=== PATIENT | male | born 1965 | race Caucasian/White ===

== ENCOUNTER 2020-12-25 01:20 | Emergency (ER) | payer OTHER ==
[~2020-12-25 01:20] MED LIST: 3IN1 COMMODE; METFORMIN HCL500 M2 PO; MOTRIN600 MG PO
[2020-12-25 02:07] LABS: BASOPHIL 0.7 % (0-2); EOSINOPHIL 3.9 % (0-5); HCT 43.1 % (42.0-52.0); HGB 15.1 g/dl (13.2-18.0); LYMPHOCYTE 23.8 % (15-48); MCH 33.6 pg (25.0-31.0); MCV 95.8 fL (78.0-100.0); MONOCYTE 8.3 % (0-12); MPV 11.4 fL (6.0-9.5); NRBC 0; PLT 122 K/uL (150-400); RDW 13.9 % (11.5-14.0); WBC 5.9 K/uL (4.0-10.5)
[2020-12-25 02:10] LABS: INR 1.56 (0.9-1.2); PROTHROMBIN TIME 17.7 SECONDS (11.4-13.6); PTT 37.3 SECONDS (22.2-34.7)
[2020-12-25 02:24] LABS: BILIRUBIN NEGATIVE (NEGATIVE); BLOOD NEGATIVE Ery/uL (NEGATIVE); CLARITY CLEAR (CLEAR); COLOR YELLOW (YELLOW); GLUCOSE (U) NORMAL (NORMAL); LEUKOCYTES NEGATIVE Leu/uL (NEGATIVE); NITRITE NEGATIVE (NEGATIVE); PROTEIN NEGATIVE (NEGATIVE); UROBILINOGEN 0.2 mg/dL (0.2-1.0); pH 6.5 (5.0-9.0)
[2020-12-25 02:32] LABS: ALBUMIN 3.1 g/dL (3.4-5.0); BILIRUBIN - TOTAL 1.2 mg/dL (0.2-1.0); BUN/CREAT RATIO (CALC) 24.2 RATIO; CREATININE 0.66 mg/dL (0.67-1.17); GLOBULIN (CALCULATION) 4.1 g/dL; IRON % SATURATION 19.9 %SAT (20-50); MAGNESIUM 1.9 mg/dL (1.8-2.4); POTASSIUM 3.3 mmol/L (3.5-5.1); TOTAL PROTEIN 7.2 g/dL (6.4-8.2)
[2020-12-25] MEDS ORDERED: ALDACTONE50 MG PO (06:27)
[2020-12-25 09:29] LABS: WBC (FLUID) 407 WBC/uL
[2020-12-25 09:38] LABS: COLOR (FLUID) YELLOW
[2020-12-25 09:39] LABS: CLARITY (FLUID) CLOUDY; RBC (FLUID) 590 RBC/uL
== END 2020-12-25 11:41 | disposition home or self-care (01) ==
LOC: FER 01:20
PROVIDERS: Emergency Medicine
DX: K74.60 Unspecified cirrhosis of liver (principal); E11.9 Type 2 diabetes mellitus without complications; I10 Essential (primary) hypertension; Z88.6 Allergy status to analgesic agent
CPT/HCPCS: 36415; 80053; 81003; 82150; 82728; 83036; 83540; 83550; 83605; 83615; 83690; 83735; 84145; 84157; 84443; 84484; 85025; 85610; 85730; 87070; 89051; 93005; 96365; 96366; 96375; 96376; J1170; J2060; J2405; P9046; P9047; Q9967

== ENCOUNTER 2022-01-16 18:04 | Emergency (ER) | payer OTHER ==
[~2022-01-16 18:04] MED LIST changes: +ALDACTONE50 MG PO
[2022-01-16] MEDS ORDERED: BACTRIM DS TAB1 EACH PO (19:31)
[2022-01-16] MEDS ORDERED: VIBRAMYCIN100 MG PO (19:31)
== END 2022-01-16 20:10 | disposition home or self-care (01) ==
LOC: FER 18:04
DX: L03.115 Cellulitis of right lower limb (principal); I10 Essential (primary) hypertension; Z88.6 Allergy status to analgesic agent; Z79.899 Other long term (current) drug therapy
CPT/HCPCS: 99282

== ENCOUNTER 2022-01-20 00:30 | Inpatient (IN) | payer OTHER ==
[~2022-01-20] VITALS: Ht 180.3 cm; Wt 104.0 kg
[~2022-01-20 00:30] MED LIST changes: +BACTRIM DS TAB1 EACH PO; +VIBRAMYCIN100 MG PO
[2022-01-20 01:28] LABS: BASOPHIL 0.7 % (0-2); EOSINOPHIL 1.9 % (0-5); HCT 45.7 % (42.0-52.0); HGB 16.3 g/dl (13.2-18.0); LYMPHOCYTE 18.2 % (15-48); MCHC 35.7 g/dL (32.0-36.0); MCV 95.2 fL (78.0-100.0); MONOCYTE 8.8 % (0-12); MPV 11.4 fL (6.0-9.5); NEUTROPHIL 69.9 % (41-80); NRBC 0; RDW 13.2 % (11.5-14.0); WBC 4.2 K/uL (4.0-10.5)
[2022-01-20 01:31] LABS: PLT 68 K/uL (150-400)
[2022-01-20 01:42] LABS: LACTIC ACID 2.7 mmol/L (0.4-1.9)
[2022-01-20 01:49] LABS: ALBUMIN 2.9 g/dL (3.4-5.0); BILIRUBIN - TOTAL 2.2 mg/dL (0.2-1.0); BUN/CREAT RATIO (CALC) 19.2 RATIO; C-REACTIVE PROTEIN 2.5 mg/dL (<=0.90); CREATININE 0.73 mg/dL (0.67-1.17); GLOBULIN (CALCULATION) 4.2 g/dL; POTASSIUM 4.6 mmol/L (3.5-5.1); TOTAL PROTEIN 7.1 g/dL (6.4-8.2)
[2022-01-20] MEDS ORDERED: PROAMATINE5 MG PO (05:29)
[2022-01-20] MEDS ORDERED: FUROSEMIDE 20MG20 MG PO (05:30)
[2022-01-20] MEDS ORDERED: OS-CAL500 MG PO (05:30)
[2022-01-20] MEDS ORDERED: ZINC50 MG PO (05:31)
[2022-01-20] MEDS ORDERED: VITAMIN D325 MC1 PO (05:32)
[2022-01-20] MEDS ORDERED: AMILORIDE HCL5 M1 PO (05:35)
[2022-01-20 13:16] LABS: BASOPHIL 0.4 % (0-2); EOSINOPHIL 1.8 % (0-5); HCT 41.2 % (42.0-52.0); HGB 14.8 g/dl (13.2-18.0); LYMPHOCYTE 14.8 % (15-48); MCH 33.7 pg (25.0-31.0); MCHC 35.9 g/dL (32.0-36.0); MCV 93.8 fL (78.0-100.0); MONOCYTE 8.4 % (0-12); MPV 11.2 fL (6.0-9.5); NEUTROPHIL 74.2 % (41-80); NRBC 0; RBC 4.39 M/uL (4.70-6.00); RDW 13.3 % (11.5-14.0); WBC 5.5 K/uL (4.0-10.5)
[2022-01-20 13:19] LABS: INR 1.58 (0.9-1.2); PROTHROMBIN TIME 18.1 SECONDS (11.8-13.4); PTT 43.5 SECONDS (24.4-34.7)
[2022-01-20 13:25] LABS: ALBUMIN 2.3 g/dL (3.4-5.0); BUN/CREAT RATIO (CALC) 22.4 RATIO; C-REACTIVE PROTEIN 2.8 mg/dL (<=0.90); CREATININE 0.67 mg/dL (0.67-1.17); GLOBULIN (CALCULATION) 3.8 g/dL; MAGNESIUM 1.5 mg/dL (1.8-2.4); PHOSPHORUS 2.5 mg/dL (2.6-4.7); POTASSIUM 3.8 mmol/L (3.5-5.1); TOTAL PROTEIN 6.1 g/dL (6.4-8.2)
[2022-01-20 13:28] LABS: BILIRUBIN - TOTAL 3.1 mg/dL (0.2-1.0)
[2022-01-20 13:45] LABS: PLT 62 K/uL (150-400)
--- NOTE | 2022-01-20 14:39 | NUR ---
DR. LOPEZ ORDERED MID-LINE. I WENT TO PATIENTS BEDSIDE, EXPALINED PROCEDURE, PATIENT VERBALLY CONSENTED. I USED ULTRASOUND TO VIEW THE PATIENTS LEFT UPPER CEPHALIC VEIN. I CLEANED AND PREPPED THE AREA, USING STERILE PROCEDURE, I INSERTED THE 21 GAUGE NEEDLE INTO THE PATIENTS LEFT UPPER ARM, BLOOD RETURN NOTED, I THEN ADVANCED THE GUIDEWIRE INTO THE NEEDLE AND RELEASED THE TOURNIQUET. I RETRACTED THE NEEDLE AND ADVANCED THE INTRODUCER AND MID-LINE OVER THE GUIDEWIRE, I WAS ABLE TO INSERT THE MID-LINE AND INTRODUCER OVER THE GUIDEWIRE W/O DIFFICULTY, AND THEN REMOVED THE GUIDEWIRE. I REMOVED THE INTERNAL INTRODUCER, LEAVING THE MID-LINE IN PLACE. BLOOD RETURN NOTED AND MID-LINE FLUSHED WITH 10ML NS W/O ANY DIFFICULTY. STERILE DRESSING PLACED OVER MID-LINE, REPORT GIVEN TO JERICA MYERS
[2022-01-21 06:09] LABS: BASOPHIL 0.5 % (0-2); EOSINOPHIL 3.2 % (0-5); HCT 40.6 % (42.0-52.0); HGB 14.5 g/dl (13.2-18.0); LYMPHOCYTE 25.6 % (15-48); MCHC 35.7 g/dL (32.0-36.0); MCV 95.3 fL (78.0-100.0); MONOCYTE 12.4 % (0-12); MPV 11.7 fL (6.0-9.5); NEUTROPHIL 58.1 % (41-80); NRBC 0; RBC 4.26 M/uL (4.70-6.00); RDW 13.5 % (11.5-14.0); WBC 4.1 K/uL (4.0-10.5)
[2022-01-21 06:12] LABS: PLT 65 K/uL (150-400)
[2022-01-21 06:29] LABS: BILIRUBIN - TOTAL 2.5 mg/dL (0.2-1.0); BUN/CREAT RATIO (CALC) 28.6 RATIO; C-REACTIVE PROTEIN 4.3 mg/dL (<=0.90); CREATININE 0.56 mg/dL (0.67-1.17); GLOBULIN (CALCULATION) 3.9 g/dL; MAGNESIUM 1.7 mg/dL (1.8-2.4); PHOSPHORUS 2.8 mg/dL (2.6-4.7); POTASSIUM 4.1 mmol/L (3.5-5.1); TOTAL PROTEIN 5.9 g/dL (6.4-8.2)
[2022-01-21] MEDS ORDERED: FLORANEX TABLE1 EACH PO (17:39)
[2022-01-21] MEDS ORDERED: METFORMIN HCL500 MG PO (17:39)
[2022-01-21] MEDS ORDERED: GLUCOTROL5 MG PO (17:39)
== END 2022-01-21 18:30 | disposition home or self-care (01) | DRG 872 ==
LOC: FER 00:30 → FMS 04:38
PROVIDERS: Emergency Medicine; Nurse Practitioner; ADMIT Internal Medicine
PROC: 3E03329 Introduction of Other Anti-infective into Peripheral Vein, Percutaneous Approach (ICD-10-PCS; principal; 2022-01-20)
PROC: 05HY33Z Insertion of Infusion Device into Upper Vein, Percutaneous Approach (ICD-10-PCS; 2022-01-20)
DX: A41.9 Sepsis, unspecified organism (principal); E87.2 Acidosis; L03.115 Cellulitis of right lower limb; R65.20 Severe sepsis without septic shock; Z20.822 Contact with and (suspected) exposure to COVID-19; F17.210 Nicotine dependence, cigarettes, uncomplicated; K75.81 Nonalcoholic steatohepatitis (NASH); D69.6 Thrombocytopenia, unspecified; E11.65 Type 2 diabetes mellitus with hyperglycemia; E78.5 Hyperlipidemia, unspecified; K21.9 Gastro-esophageal reflux disease without esophagitis; Z90.49 Acquired absence of other specified parts of digestive tract; Z79.899 Other long term (current) drug therapy
CPT/HCPCS: 36415; 75635; 80053; 80061; 83036; 83605; 83735; 83880; 84100; 84145; 85025; 85610; 85730; 86140; 87040; 93970; 94010; 94760; 94762; J0878; J1170; J1650; J1815; J1940; J2543; J3370; J3475; J7030; J7040; J7120; Q9967; U0002

== ENCOUNTER 2022-02-27 20:58 | Inpatient (IN) | payer OTHER ==
[~2022-02-27] VITALS: Ht 180.1 cm; Wt 97.1 kg
[~2022-02-27 20:58] MED LIST changes: +AMILORIDE HCL5 M1 PO; +FLORANEX TABLE1 EACH PO; +FUROSEMIDE 20MG20 MG PO; +GLUCOTROL5 MG PO; +METFORMIN HCL500 MG PO; +OS-CAL500 MG PO; +PROAMATINE5 MG PO; +VITAMIN D325 MC1 PO; +ZINC50 MG PO
[2022-02-27 23:19] LABS: BASOPHIL 0.6 % (0-2); EOSINOPHIL 2.6 % (0-5); HCT 50.3 % (42.0-52.0); HGB 17.8 g/dl (13.2-18.0); LYMPHOCYTE 19.2 % (15-48); MCH 33.8 pg (25.0-31.0); MCHC 35.4 g/dL (32.0-36.0); MCV 95.6 fL (78.0-100.0); MONOCYTE 7.7 % (0-12); MPV 11.1 fL (6.0-9.5); NEUTROPHIL 69.5 % (41-80); NRBC 0; RBC 5.26 M/uL (4.70-6.00); RDW 13.7 % (11.5-14.0); WBC 4.7 K/uL (4.0-10.5)
[2022-02-27 23:30] LABS: PLT 81 K/uL (150-400)
[2022-02-27 23:34] LABS: ALBUMIN 2.8 g/dL (3.4-5.0); ALKALINE PHOSHATASE 192 U/L (46-116); ALT 48 U/L (16-63); AST 76 U/L (15-37); BILIRUBIN - TOTAL 1.8 mg/dL (0.2-1.0); BUN 20 mg/dL (7-18); BUN/CREAT RATIO (CALC) 31.7 RATIO; CHLORIDE 108 mmol/L (98-107); CO2 (BICARBONATE) 20 mmol/L (21-32); CREATININE 0.63 mg/dL (0.67-1.17); GLOBULIN (CALCULATION) 4.9 g/dL; GLUCOSE 117 mg/dL (74-106); LIPASE 222 U/L (73-393); MAGNESIUM 1.9 mg/dL (1.8-2.4); POTASSIUM 3.7 mmol/L (3.5-5.1); TOTAL PROTEIN 7.7 g/dL (6.4-8.2)
[2022-02-27 23:35] LABS: ACETAMINOPHEN (TYLENOL) < 2.0 ug/mL (10.0-30.0)
[2022-02-28] MEDS ORDERED: JARDIANCE25 MG PO (06:18)
[2022-02-28] MEDS ORDERED: XIFAXAN550 MG PO (07:28)
[2022-02-28] MEDS ORDERED: PANTOPRAZOLE SO20 MG PO (07:29)
[2022-02-28] MEDS ORDERED: METFORMIN HCL500 M3 PO (07:32)
[2022-02-28 13:22] LABS: BILIRUBIN NEGATIVE (NEGATIVE); BLOOD NEGATIVE Ery/uL (NEGATIVE); CLARITY CLEAR (CLEAR); COLOR YELLOW (YELLOW); GLUCOSE (U) 3+ mg/dL (NORMAL); LEUKOCYTES NEGATIVE Leu/uL (NEGATIVE); NITRITE NEGATIVE (NEGATIVE); PROTEIN NEGATIVE (NEGATIVE); SPECIFIC GRAVITY 1.025 (1.001-1.030); UROBILINOGEN 0.2 mg/dL (0.2-1.0)
[2022-02-28 13:28] LABS: AMPHETAMINES NEGATIVE (NEGATIVE); BARBITURATES NEGATIVE (NEGATIVE); ECSTASY (MDMA) NEGATIVE (NEGATIVE); MARIJUANA (THC) NEGATIVE (NEGATIVE); METHADONE NEGATIVE (NEGATIVE); OPIATES POSITIVE (NEGATIVE); OXYCODONE NEGATIVE (NEGATIVE)
[2022-02-28] MEDS ORDERED: LACTULOSE10 G/15 ML PO (19:50)
[2022-02-28] MEDS ORDERED: CALCIUM 600 +1 EAC6 PO (19:52)
[2022-02-28] MEDS ORDERED: CYCLOBENZAPRINE10 MG PO (19:55)
[2022-02-28] MEDS ORDERED: LASIX40 MG PO (19:58)
[2022-02-28] MEDS ORDERED: PROTONIX 40MG T40 MG PO (20:03)
[2022-03-01] MEDS ORDERED: XIFAXAN550 MG PO (03:09)
[2022-03-01 06:11] LABS: BASOPHIL 0.7 % (0-2); EOSINOPHIL 2.6 % (0-5); HCT 45.7 % (42.0-52.0); HGB 15.8 g/dl (13.2-18.0); LYMPHOCYTE 23.3 % (15-48); MCH 33.8 pg (25.0-31.0); MCHC 34.6 g/dL (32.0-36.0); MCV 97.9 fL (78.0-100.0); MONOCYTE 11.6 % (0-12); MPV 10.8 fL (6.0-9.5); NEUTROPHIL 61.3 % (41-80); NRBC 0; PLT 80 K/uL (150-400); RBC 4.67 M/uL (4.70-6.00); RDW 13.8 % (11.5-14.0); WBC 4.2 K/uL (4.0-10.5)
[2022-03-01 06:13] LABS: INR 1.47 (0.9-1.2); PROTHROMBIN TIME 17.1 SECONDS (11.8-13.4)
[2022-03-01 06:34] LABS: ALBUMIN 2.4 g/dL (3.4-5.0); BILIRUBIN - DIRECT 0.5 mg/dL (0.00-0.20); BILIRUBIN - TOTAL 2.6 mg/dL (0.2-1.0); BUN/CREAT RATIO (CALC) 32.3 RATIO; CREATININE 0.62 mg/dL (0.67-1.17); GLOBULIN (CALCULATION) 4.4 g/dL; POTASSIUM 3.7 mmol/L (3.5-5.1); TOTAL PROTEIN 6.8 g/dL (6.4-8.2)
[2022-03-02 06:47] LABS: BASOPHIL 0.5 % (0-2); EOSINOPHIL 4.2 % (0-5); HCT 43.2 % (42.0-52.0); LYMPHOCYTE 23.7 % (15-48); MCH 33.6 pg (25.0-31.0); MCHC 34.7 g/dL (32.0-36.0); MCV 96.6 fL (78.0-100.0); MONOCYTE 12.4 % (0-12); MPV 10.7 fL (6.0-9.5); NEUTROPHIL 58.4 % (41-80); NRBC 0; RBC 4.47 M/uL (4.70-6.00); RDW 13.3 % (11.5-14.0); WBC 3.8 K/uL (4.0-10.5)
[2022-03-02 06:48] LABS: PLT 89 K/uL (150-400)
[2022-03-02 07:13] LABS: ALBUMIN 2.3 g/dL (3.4-5.0); BILIRUBIN - TOTAL 2.3 mg/dL (0.2-1.0); BUN/CREAT RATIO (CALC) 30.4 RATIO; CREATININE 0.56 mg/dL (0.67-1.17); GLOBULIN (CALCULATION) 3.9 g/dL; POTASSIUM 3.9 mmol/L (3.5-5.1); TOTAL PROTEIN 6.2 g/dL (6.4-8.2)
[2022-03-02] MEDS ORDERED: HCTZ25 MG PO (23:50)
[2022-03-02] MEDS ORDERED: UROCIT-K10 MEQ PO (23:50)
[2022-03-02] MEDS ORDERED: SIMVASTATIN40 MG PO (23:52)
[2022-03-02] MEDS ORDERED: MOBIC7.5 MG PO (23:52)
[2022-03-02] MEDS ORDERED: ASCORBIC ACID500 MG PO (23:54)
[2022-03-03 06:38] LABS: BASOPHIL 0.6 % (0-2); EOSINOPHIL 4.6 % (0-5); HCT 41.8 % (42.0-52.0); HGB 14.5 g/dl (13.2-18.0); LYMPHOCYTE 29.6 % (15-48); MCH 33.8 pg (25.0-31.0); MCHC 34.7 g/dL (32.0-36.0); MCV 97.4 fL (78.0-100.0); MONOCYTE 10.7 % (0-12); MPV 10.7 fL (6.0-9.5); NEUTROPHIL 53.9 % (41-80); NRBC 0; RBC 4.29 M/uL (4.70-6.00); RDW 13.3 % (11.5-14.0); WBC 3.3 K/uL (4.0-10.5)
[2022-03-03 06:42] LABS: INR 1.52 (0.9-1.2); PROTHROMBIN TIME 17.6 SECONDS (11.8-13.4)
[2022-03-03 06:44] LABS: PLT 88 K/uL (150-400)
[2022-03-03 06:59] LABS: BUN/CREAT RATIO (CALC) 22.6 RATIO; CREATININE 0.53 mg/dL (0.67-1.17); POTASSIUM 3.9 mmol/L (3.5-5.1)
[2022-03-04 07:22] LABS: HCT 40.3 % (42.0-52.0); HGB 14.1 g/dl (13.2-18.0); MCH 34.1 pg (25.0-31.0); MCV 97.3 fL (78.0-100.0); MPV 10.8 fL (6.0-9.5); RBC 4.14 M/uL (4.70-6.00); RDW 13.2 % (11.5-14.0); WBC 3.7 K/uL (4.0-10.5)
[2022-03-04 07:41] LABS: BUN/CREAT RATIO (CALC) 24.5 RATIO; CREATININE 0.53 mg/dL (0.67-1.17); POTASSIUM 3.9 mmol/L (3.5-5.1)
--- NOTE | 2022-03-04 23:02 | NUR ---
2302 03/04/22 [facility] NOTIFIED OF PATIENT TRANSFER.
== END 2022-03-05 03:19 | disposition other institution (70) | DRG 441 ==
LOC: FER 20:58 → FMS 02-28 04:00
PROVIDERS: Family Medicine; Internal Medicine; Nurse Practitioner; Nurse Practitioner Acute Care; ADMIT Internal Medicine
DX: K72.00 Acute and subacute hepatic failure without coma (principal); G92.8 Other toxic encephalopathy; S42.251A Displaced fracture of greater tuberosity of right humerus, initial encounter for closed fracture; E87.1 Hypo-osmolality and hyponatremia; S42.291A Other displaced fracture of upper end of right humerus, initial encounter for closed fracture; Z20.822 Contact with and (suspected) exposure to COVID-19; T40.2X5A Adverse effect of other opioids, initial encounter; E11.9 Type 2 diabetes mellitus without complications; F17.210 Nicotine dependence, cigarettes, uncomplicated; K21.9 Gastro-esophageal reflux disease without esophagitis; E78.5 Hyperlipidemia, unspecified; D69.6 Thrombocytopenia, unspecified; K75.81 Nonalcoholic steatohepatitis (NASH); E88.09 Other disorders of plasma-protein metabolism, not elsewhere classified; Z28.310 Unvaccinated for COVID-19; W01.0XXA Fall on same level from slipping, tripping and stumbling without subsequent striking against object, initial encounter; Y92.009 Unspecified place in unspecified non-institutional (private) residence as the place of occurrence of the external cause; Z98.890 Other specified postprocedural states; Z90.49 Acquired absence of other specified parts of digestive tract; Z87.19 Personal history of other diseases of the digestive system; Z79.84 Long term (current) use of oral hypoglycemic drugs
CPT/HCPCS: 36415; 70450; 71045; 73030; 73200; 80048; 80053; 80076; 80305; 81003; 82140; 83690; 83735; 84145; 84484; 85025; 85610; 93005; 94010; 94760; 97162; 97166; 97530; 97530-GP; 97535; G0480; J1170; J2270; U0002

== ENCOUNTER 2022-03-29 21:20 | Day surgery (SDCO) | payer OTHER ==
[~2022-03-29] VITALS: Ht 180.3 cm; Wt 96.2 kg
[~2022-03-29 21:20] MED LIST changes: +ASCORBIC ACID500 MG PO; +CALCIUM 600 +1 EAC6 PO; +CYCLOBENZAPRINE10 MG PO; +HCTZ25 MG PO; +JARDIANCE25 MG PO; +LACTULOSE10 G/15 ML PO; +LASIX40 MG PO; +METFORMIN HCL500 M3 PO; +MOBIC7.5 MG PO; +PANTOPRAZOLE SO20 MG PO; +PROTONIX 40MG T40 MG PO; +SIMVASTATIN40 MG PO; +UROCIT-K10 MEQ PO; +XIFAXAN550 MG PO
[2022-03-29 22:29] LABS: BASOPHIL 0.5 % (0-2); EOSINOPHIL 2.5 % (0-5); HCT 46.5 % (42.0-52.0); LYMPHOCYTE 18.6 % (15-48); MCH 33.8 pg (25.0-31.0); MCHC 34.4 g/dL (32.0-36.0); MCV 98.3 fL (78.0-100.0); MONOCYTE 8.7 % (0-12); NEUTROPHIL 69.5 % (41-80); NRBC 0; RBC 4.73 M/uL (4.70-6.00); RDW 14.2 % (11.5-14.0); WBC 4.4 K/uL (4.0-10.5)
[2022-03-29 22:31] LABS: PLT 80 K/uL (150-400)
[2022-03-29 22:47] LABS: LACTIC ACID 2.3 mmol/L (0.4-1.9)
[2022-03-29 22:58] LABS: ALBUMIN 2.8 g/dL (3.4-5.0); ALKALINE PHOSHATASE 200 U/L (46-116); ALT 33 U/L (16-63); AST 64 U/L (15-37); BILIRUBIN - TOTAL 2.2 mg/dL (0.2-1.0); BUN 22 mg/dL (7-18); BUN/CREAT RATIO (CALC) 34.9 RATIO; CHLORIDE 108 mmol/L (98-107); CO2 (BICARBONATE) 20 mmol/L (21-32); CREATININE 0.63 mg/dL (0.67-1.17); GLOBULIN (CALCULATION) 4.3 g/dL; GLUCOSE 188 mg/dL (74-106); LIPASE 335 U/L (73-393); TOTAL PROTEIN 7.1 g/dL (6.4-8.2)
[2022-03-29 22:59] LABS: ACETAMINOPHEN (TYLENOL) < 2.0 ug/mL (10.0-30.0)
[2022-03-30 00:59] LABS: BILIRUBIN NEGATIVE (NEGATIVE); BLOOD TRACE-INTACT Ery/uL (NEGATIVE); CLARITY CLEAR (CLEAR); COLOR YELLOW (YELLOW); GLUCOSE (U) 3+ mg/dL (NORMAL); LEUKOCYTES NEGATIVE Leu/uL (NEGATIVE); NITRITE NEGATIVE (NEGATIVE); PROTEIN NEGATIVE (NEGATIVE); UROBILINOGEN 0.2 mg/dL (0.2-1.0)
[2022-03-30 01:06] LABS: URINARY WBC RARE
[2022-03-30] MEDS ORDERED: PROAMATINE5 MG PO (03:17)
[2022-03-30] MEDS ORDERED: LASIX20 MG PO (03:17)
[2022-03-30] MEDS ORDERED: VITAMIN D325 MC2 PO (03:18)
[2022-03-30] MEDS ORDERED: ZINC50 M1 PO (03:18)
[2022-03-30] MEDS ORDERED: OS-CAL500 MG PO (03:18)
[2022-03-30] MEDS ORDERED: METFORMIN HCL500 MG PO (03:19)
[2022-03-30] MEDS ORDERED: AMILORIDE HCL5 MG PO (03:19)
[2022-03-30] MEDS ORDERED: JARDIANCE25 MG PO (03:20)
[2022-03-30] MEDS ORDERED: XIFAXAN550 MG PO (03:20)
[2022-03-30] MEDS ORDERED: LACTULOSE10 G/15 ML PO (03:21)
[2022-03-30] MEDS ORDERED: FLEXERIL5 MG PO (03:23)
[2022-03-30] MEDS ORDERED: PROTONIX 40MG T40 MG PO (03:23)
[2022-03-30] MEDS ORDERED: HCTZ25 MG PO (03:24)
[2022-03-30] MEDS ORDERED: ZOCOR40 MG PO (03:26)
--- NOTE | 2022-03-30 17:18 | NUR ---
03/30/22 Mr. Coy lives with his mother at [address], [place]. He is independent in the home and communiy. He has a PCP. - Mr. Coy was reported not to be taking his medications. He reports to have missed one dose of the Laculose. He has Passport to afford his medications.
[2022-03-31 05:56] LABS: BASOPHIL 1.2 % (0-2); EOSINOPHIL 4.1 % (0-5); HCT 42.1 % (42.0-52.0); HGB 14.7 g/dl (13.2-18.0); LYMPHOCYTE 29.9 % (15-48); MCHC 34.9 g/dL (32.0-36.0); MCV 97.5 fL (78.0-100.0); MONOCYTE 12.4 % (0-12); MPV 10.2 fL (6.0-9.5); NEUTROPHIL 52.1 % (41-80); NRBC 0; PLT 77 K/uL (150-400); RBC 4.32 M/uL (4.70-6.00); RDW 13.9 % (11.5-14.0); WBC 3.4 K/uL (4.0-10.5)
[2022-03-31 06:30] LABS: ALBUMIN 2.4 g/dL (3.4-5.0); BILIRUBIN - TOTAL 1.7 mg/dL (0.2-1.0); BUN/CREAT RATIO (CALC) 23.4 RATIO; CREATININE 0.64 mg/dL (0.67-1.17); GLOBULIN (CALCULATION) 3.6 g/dL; POTASSIUM 3.3 mmol/L (3.5-5.1)
[2022-03-31 13:55] LABS: BUN/CREAT RATIO (CALC) 23.7 RATIO; CREATININE 0.59 mg/dL (0.67-1.17); POTASSIUM 3.3 mmol/L (3.5-5.1)
[2022-03-31] MEDS ORDERED: MOBIC7.5 MG PO (15:38)
[2022-03-31] MEDS ORDERED: UROCIT-K10 MEQ PO (15:38)
== END 2022-03-31 16:03 | disposition home or self-care (01) ==
LOC: FER 21:20 → FMS 03-30 01:42
PROVIDERS: Hospitalist; Internal Medicine; Nurse Practitioner; ADMIT Internal Medicine
DX: K72.90 Hepatic failure, unspecified without coma (principal); K74.60 Unspecified cirrhosis of liver; D69.6 Thrombocytopenia, unspecified; E11.9 Type 2 diabetes mellitus without complications; K21.9 Gastro-esophageal reflux disease without esophagitis; I95.9 Hypotension, unspecified; K75.81 Nonalcoholic steatohepatitis (NASH); I10 Essential (primary) hypertension; F17.210 Nicotine dependence, cigarettes, uncomplicated
CPT/HCPCS: 36415; 70450; 71250; 80048; 80053; 81001; 82140; 83605; 83690; 84145; 84484; 85025; 87040; 93005; 94010; G0378; G0480